=== PATIENT | female | born 1970 | race Caucasian/White ===

== ENCOUNTER → 2023-10-29 08:57 | Outpatient (REF) | payer BC, SELFPAY | LOC: RAD 08:57 | PROVIDERS: ATTENDING PHYSICIAN Physician Assistant | DX: R05.3 Chronic cough (principal) | CPT/HCPCS: 71046 ==

== ENCOUNTER → 2023-11-16 14:55 | Outpatient (REF) | payer BC, SELFPAY | LOC: WDC 14:55 | PROVIDERS: ATTENDING PHYSICIAN Nurse Practitioner | DX: Z12.31 Encounter for screening mammogram for malignant neoplasm of breast (principal) | CPT/HCPCS: 77063; 77067 ==

== ENCOUNTER 2024-02-08 11:26 | Emergency (ER) | payer BC, SELFPAY ==
[2024-02-08 11:40] VITALS: BP 165/103
--- NOTE | 2024-02-08 14:04 | ED.GENMED ---
History of Present Illness
<Octavia Gama PA-C - Last Filed: 02/08/24 17:58>
General
Chief Complaint: Anal/Rectal Problem
Source: patient
Exam Limitations: none
Time Seen by Provider: 02/08/24 14:03
Nursing documentation reviewed up to this point in time: agreed with
Travel History
Have you had any contact with someone who has COVID-19?: No
Do you have any symptoms of coronavirus? Fever > 100 degrees, chills, cough, shortness of breath, sore throat, loss of taste or smell, muscle aches, or headache?: No
History of Present Illness
History of Present Illness:
This is a 53 y/o female with a PMH of HLP, HTN, C. diff presenting to the emergency department today with concerns of rectal pain from a thrombosed hemorrhoid. Patient states that she noticed this pain 4 days ago. Patient states that she has a
history of hemorrhoids and states that this did feel much like a hemorrhoid. Patient follows with a casting operator helper and did call her GI doctor who suspected a thrombosed hemorrhoid and but advised her to present to the emergency department
today. Patient states that she has been using sitz bath, Preparation H suppositories, and topical hemorrhoid cream without relief. Patient denies abdominal pain, fevers or chills, nausea or vomiting.
Past History
<Octavia Gama PA-C - Last Filed: 02/08/24 17:58>
Past History
ED Past Medical History: None
ED Past Surgical History: None
Review of Systems
<Octavia Gama PA-C - Last Filed: 02/08/24 17:58>
Review of Systems
All Other Systems: ROS reviewed and negative except as documented in HPI and ROS
Phy Exam
<Octavia Gama PA-C - Last Filed: 02/08/24 17:58>
Physical Exam
Physical Exam:
General: Patient is well appearing and in no acute distress; non-toxic
Skin: Warm and dry, no rashes or lesions
Head: Normocephalic, atraumatic
Eyes: Sclera non-icteric. EOMs intact.
Cardiac: Regular rate
Peripheral Vascular: Lower extremity swelling or edema
Pulm: Normal respiratory effort
Abdomen: No abdominal tenderness
Genitourinary: There is an abscess with surrounding erythema noted at the right inferior labia majora near Bartholin glands, no active drainage, no other lesions. No perirectal lesions or masses noted, no obvious hemorrhoids on exam.
Neuro: CN II-XII intact, no focal neurologic deficits.
Psychiatric: Appropriate mood and affect.
Course
<Octavia Gama PA-C - Last Filed: 02/08/24 17:58>
Orders/Labs/Results
Orders:
Orders
02/08/24 14:20
Ibuprofen [Motrin] 600 mg PO NOW STA
Vital Signs
Initial and Last Documented VS:
Initial Vital Signs
Temp Pulse Resp BP Pulse Ox
99.1 F 101 20 165/103 97
02/08/24 11:40 02/08/24 11:40 02/08/24 11:40 02/08/24 11:40 02/08/24 11:40
Last Documented Vital Signs
Temp Pulse Resp BP Pulse Ox
99.1 F 101 20 165/103 97
02/08/24 11:40 02/08/24 11:40 02/08/24 11:40 02/08/24 11:40 02/08/24 11:40
<Curtis Marquez DO - Last Filed: 02/08/24 15:20>
Orders/Labs/Results
Orders:
Orders
02/08/24 14:20
Ibuprofen [Motrin] 600 mg PO NOW STA
Vital Signs
Initial and Last Documented VS:
Initial Vital Signs
Temp Pulse Resp BP Pulse Ox
99.1 F 101 20 165/103 97
02/08/24 11:40 02/08/24 11:40 02/08/24 11:40 02/08/24 11:40 02/08/24 11:40
Last Documented Vital Signs
Temp Pulse Resp BP Pulse Ox
99.1 F 101 20 165/103 97
02/08/24 11:40 02/08/24 11:40 02/08/24 11:40 02/08/24 11:40 02/08/24 11:40
Procedures
<Octavia Gama PA-C - Last Filed: 02/08/24 17:58>
Incision/Drainage/Joint Aspiration
Right Vagina:
Anethesia: 1% Lidocaine with Epi
Preparation: cleaned with Betadine
Type of procedure: incise and drain
Nature of site: abscess
Description of abscess: less than 3cm
Loculations broken up: No
How much fluid was obtained?: small amount
Fluid description: purulent
Treatment: left open for drainage
<Octavia Gama PA-C - Last Filed: 02/08/24 17:58>
MDM/Problems Addressed
Differential Diagnosis Includes:
Cutaneous abscess, Bartholin gland cyst, cellulitis, erysipelas
MDM/Problems Addressed:
genital pain
Chronic conditions affecting care:
Hypertension, hyperlipidemia, anxiety, hemorrhoids
<Octavia Gama PA-C - Last Filed: 02/08/24 17:58>
*Pulse Oximetry
Patient hypoxic: no
*Critical Care Note
Total Time (30-74mins, 75-104mins- exclusive of procedures): Not Applicable
Data Reviewed
Review of Other/Old Records Reveals: Records and Operative Reports (Reviewed colonoscopy report from September 2023 where internal hemorrhoids were found)
Source: patient
<Octavia Gama PA-C - Last Filed: 02/08/24 17:58>
Patient Management
Escalation/DeEscalation of care consider admission/obs:
This is a 53 y/o female with a PMH of HLP, HTN, C. diff presenting to the emergency department today with concerns of rectal pain from a thrombosed hemorrhoid. On exam, there are no hemorrhoids noted, however she does have a cystic structure with
surrounding erythema noted to the right labia majora. This was incised and drained, giving patient relief. Discussed at home care and how her wound will continue to drain. Discussed dressing placement, I went to go get dressing materials and when
I returned, patient was walking out of the emergency department dressed and refused to stay for dressing placement. Patient stable for discharge however and patient states that she will follow-up with a electro mechanical technician.
ED Attending Note
<Octavia Gama PA-C - Last Filed: 02/08/24 17:58>
-
Portions of this chart may have been created with voice recognition software.� Occasional wrong word or��sound alike� substitutions may have occurred due to the inherent limitations of voice recognition software.
<Curtis Marquez DO - Last Filed: 02/08/24 15:20>
ED Attending Note
Patient seen and examined by attending physician: Yes
I performed a history and physical exam of patient and discussed management with resident, I reviewed resident's note and agree with documented findings and plan of care.: Yes
ED Attending Note:
I have reviewed and agree with history and treatment plan by Octavia Gama. My exam revealed proximal gland abscess in right lower labia. Drainage successful, patient experienced relief. Discussed antibiotic versus observation, she opts for
observation because she has had C. difficile she will follow-up with CARDIOLOGY NURSE PRACTITIONER. Patient got dressed and walked out prior to being able to apply dressing.
Discharge Plan
Departure
Patient Disposition: Home (Routine Discharge)
Date of Disposition: 02/08/24
Time of Disposition: 15:04
Patient with high blood pressure during this ER visit?: Yes
Condition: Good
Discharge Problem:
Bartholin gland cyst
Instructions: Bartholin gland cyst, How to Do a Sitz Bath, BLOOD PRESSURE
Prescriptions:
New
clindamycin HCl 300 mg capsule
300 mg PO Q6H 7 Days Qty: 28 0RF
No Action
amlodipine 5 mg Tablet
5 mg PO BID
hydroxyzine HCl 25 mg Tablet
25 mg PO HS
colestipol 1 gram Tablet
1 g PO DAILY
escitalopram oxalate 10 mg Tablet
10 mg PO DAILY
acetaminophen [Tylenol] 325 mg Capsule
650 mg PO PRN PRN (Reason: pain )
Referrals:
Emma Baeza CRNP [Family Provider] -
Activity Restrictions/Additional Instructions:
We have sent Clindamycin to your pharmacy. Please take one tablet every 6 hours for 7 days (4 tablets daily).
You can expect drainage from the wound over the coming days. You can cover the wound with band-aid or non-adherent pad. You can do sitz baths to help ease soreness and encourage drainage.
Please schedule a follow up with OBGYN. Please call the attached number tomorrow to schedule appointment.
Please return to the emergency department should you experience fevers or chills, new or worsening pain, or other signs or symptoms concerning to you.
Interventions
Interventions:
*Risk Screen - Suicide Last Done: 02/08/24 14:32
*General Assessment Last Done: 02/08/24 14:32
*Neglect/Abuse Screening Last Done: 02/08/24 14:32
*ED COVID-19 Vaccine History Last Done: 02/08/24 11:40
*Nursing Disposition Last Done: 02/08/24 15:19
Discharge Date and Time
Discharge Date/Time: 02/08/24 15:20
Print Language: [id number]
[2024-02-08] MEDS: MOTRIN 600 MG PO (14:24)
== END 2024-02-08 15:20 | disposition home or self-care (01) ==
LOC: EMR 11:26
PROVIDERS: EMERGENCY PHYSICIAN Emergency Medicine; FAMILY PHYSICIAN Nurse Practitioner
DX: N75.0 Cyst of Bartholin's gland (principal); E78.00 Pure hypercholesterolemia, unspecified; I10 Essential (primary) hypertension; F41.9 Anxiety disorder, unspecified; K64.9 Unspecified hemorrhoids; Z87.19 Personal history of other diseases of the digestive system
CPT/HCPCS: 99282; 10060

== ENCOUNTER → 2024-11-20 14:32 | Outpatient (REF) | payer BC, SELFPAY | LOC: WDC 14:32 | PROVIDERS: ATTENDING PHYSICIAN Nurse Practitioner | DX: Z12.31 Encounter for screening mammogram for malignant neoplasm of breast (principal) | CPT/HCPCS: 77063; 77067 ==

== ENCOUNTER → 2025-04-18 14:42 | Outpatient (REF) | payer BC, SELFPAY | LOC: RCS 14:42 | PROVIDERS: ATTENDING PHYSICIAN Internal Medicine Cardiovascular Disease; FAMILY PHYSICIAN Nurse Practitioner | DX: R00.2 Palpitations (principal) | CPT/HCPCS: 93306 ==